=== PATIENT | female | born 1945 | race Caucasian/White ===

== ENCOUNTER 2019-12-10 12:10 | Inpatient (IN) | payer OTHER ==
[~2019-12-10] VITALS: Ht 30.5 cm; Wt 0.2 kg
[2019-12-10] MEDS ORDERED: MIDAZOLAM DRIP 50 mg/50mL 50 ML IV ONE (12:13)
[2019-12-10] MEDS ORDERED: MIDAZOLAM DRIP 50 mg/50mL 50 ML IV SCH (12:19)
[2019-12-10 12:26] VITALS: BP 120/57
[2019-12-10] MEDS ORDERED: SODIUM CHLORIDE 0.9% 1,000 ML IV ONE (12:31)
[2019-12-10] MEDS ORDERED: cefTRIAXone 1GM/50ML D5W 50 ML IV ONE (12:45)
[2019-12-10 13:21] LABS: Eosinophils # (auto) 0.1 10 ^3/uL (0-0.8); Eosinophils % (auto) 0.8 % (0.0-7.0); Neutrophils # (auto) 11.1 10 ^3/uL (1.6-8.6); Red Cell Distribution Width 15.4 % (11.8-14.3)
[2019-12-10 13:23] LABS: Basophils # (auto) 0 10 ^3/uL (0-0.2); Basophils % (auto) 0.3 % (0.0-2.0); Hematocrit 26.2 % (36.0-46.0); Hemoglobin 8.1 g/dL (12.2-16.2); Lymphocytes # (auto) 0.6 10 ^3/uL (0.4-5.4); Lymphocytes % (auto) 4.9 % (10.0-50.0); Mean Corpuscular Volume 83.8 fL (80.0-100.0); Monocytes # (auto) 0.6 10 ^3/uL (0-1.3); Monocytes % (auto) 4.7 % (0.0-12.0); Neutrophils % (auto) 89.3 % (37.0-80.0); Nucleated Red Blood Cells % 0.1 %; Platelet Count (auto) 417 10^3/uL (140-450); Red Blood Cells 3.13 10^6/uL (4.0-5.20); White Blood Cell 12.4 10^3/uL (4.4-10.8)
[2019-12-10 13:38] VITALS: BP 131/46
[2019-12-10 13:45] LABS: Chloride 107 mmol/L (98-107); Potassium 5.4 mmol/L (3.5-5.1); Sodium 137 mmol/L (136-145)
[2019-12-10 13:52] LABS: INR 1.18 (0.9-1.15); Partial Thromboplastin Time 27.8 sec (23.0-31.2)
[2019-12-10 14:24] LABS: Blood Urea Nitrogen 47 mg/dL (7-18); Calcium 8.6 mg/dL (8.5-10.1); Glucose 167 mg/dL (74-106)
[2019-12-10 14:30] LABS: Alanine Aminotransferase 48 U/L (13-56); Albumin 2.9 g/dL (3.4-5.0); BUN/Creatinine Ratio 44.8; Bilirubin, Total 0.3 mg/dL (0.2-1.0); GFR African American 66 mL/min; GFR Non-African American 55 mL/min; Total Protein 6.8 g/dL (6.4-8.2)
[2019-12-10 14:35] VITALS: BP 143/70
[2019-12-10 14:35] LABS: Alkaline Phosphatase 188 U/L (45-117); Aspartate Aminotransferase 100 U/L (15-37)
[2019-12-10 14:59] LABS: Anion Gap 6 (5-15); Carbon Dioxide 24 mmol/L (21-32)
[2019-12-10] MEDS ORDERED: SODIUM CHLORIDE 0.9% 1,000 ML IV SCH (15:16)
[2019-12-10] MEDS ORDERED: MORPHINE SULF INJ 2 MG/ML SYRINGE 1ML IV PRN ×2 (15:30)
[2019-12-10] MEDS ORDERED: ACETAMINOPHEN 325 MG TAB PO PRN (15:30)
[2019-12-10] MEDS ORDERED: DEXTROSE (50%) 50ML SYRG IV PRN (15:30)
[2019-12-10] MEDS ORDERED: NITROGLYCERIN 0.4 MG SL TAB SL PRN (15:30)
[2019-12-10 15:34] LABS: CRP High Sensitivity 3.62 mg/dL (< 0.3)
[2019-12-10 15:43] VITALS: BP 143/70
[2019-12-10] MEDS ORDERED: InsuLIN REG 1unit/0.01ml Soln (100units/ml) SC SCH (16:00)
[2019-12-10] MEDS ORDERED: ACCU-CHEK COMFORT CURVE STRIP VI SCH (16:00)
[2019-12-10 16:14] VITALS: BP 142/75
--- NOTE | 2019-12-10 16:28 | NUR ---
Assessment Patient is a 73-year-old female who is on a Vent. Assessment was completed with patient Kennedy . Per Kennedy prior to admission patient lived home with him and functioned with assistance. Alfredo Kennedy has a bedside commode and a wheel chair for home use. Per Kennedy prior to admission patient was having shortness of breath and was brought to the hospital by the paramedics. Advised patient there is a social service consult for hospice. Kennedy requested [facility] that doctor recommended. Informed Kennedy clinical information will be faxed to [facility]. Informed Kennedy he has a right to participate in all discharge planning. Kennedy verbalized understanding and agreed to discharge plan home. Faxed clinical information to [facility]. Alfredo Harris with [facility] patient has been accepted and has been communicating with patient .
[2019-12-10] MEDS ORDERED: IOHEXOL 350 MG/ML 100ML IJ ONE (17:18)
[2019-12-10 17:48] VITALS: BP 151/71
[2019-12-10] MEDS ORDERED: ENAL20TA8 PO (17:58)
[2019-12-10] MEDS ORDERED: GLIP5TAB12 PO (17:58)
[2019-12-10] MEDS ORDERED: ATOR80TA PO (17:58)
[2019-12-10] MEDS ORDERED: METO25TA5 PO (17:58)
[2019-12-10] MEDS ORDERED: GABA-339 PO (17:58)
[2019-12-10] MEDS ORDERED: CLOP75TA41 PO (17:58)
[2019-12-10] MEDS ORDERED: CARB25TA75 PO (17:58)
[2019-12-10] MEDS ORDERED: HYDR-531 PO (17:58)
[2019-12-10] MEDS ORDERED: METF-371 PO (17:58)
[2019-12-10] MEDS ORDERED: ALPR0.25 PO (17:58)
[2019-12-10] MEDS ORDERED: SERT-375 PO (17:58)
[2019-12-10] MEDS ORDERED: LORazepam 2MG/ML-1ML VIAL IV PRN (18:45)
[2019-12-10] MEDS ORDERED: LORazepam 2MG/ML-1ML VIAL ONE (18:54)
[2019-12-10] MEDS ORDERED: ALBUTEROL SULF 2.5 MG/0.5ML(0.5%) NEB SOLN NEB PRN (19:00)
[2019-12-10] MEDS ORDERED: BUDESONIDE (INHALATION) 0.5 MG/2 ML NEB NEB SCH (19:00)
[2019-12-11] MEDS ORDERED: PANTOPRAZOLE 40 MG/10 ML VIAL INJ IV SCH (10:00)
[2019-12-11] MEDS ORDERED: ENOXAPARIN SOD 40 MG/0.4 ML SYRINGE SC SCH (10:00)
== END 2019-12-10 23:35 | disposition expired | DRG 208 ==
LOC: ER 12:10 → EDBD 12:10 → OVERFLOW 12:11
PROVIDERS: ADMIT Hospitalist; ATTEND Hospitalist
PROC: 5A1935Z Respiratory Ventilation, Less than 24 Consecutive Hours (ICD-10-PCS; principal; 2019-12-10)
PROC: 0BH17EZ Insertion of Endotracheal Airway into Trachea, Via Natural or Artificial Opening (ICD-10-PCS; 2019-12-10)
PROC: 02HV33Z Insertion of Infusion Device into Superior Vena Cava, Percutaneous Approach (ICD-10-PCS; 2019-12-10)
DX: J96.21 Acute and chronic respiratory failure with hypoxia (principal); G93.41 Metabolic encephalopathy; C34.90 Malignant neoplasm of unspecified part of unspecified bronchus or lung; I48.19 Other persistent atrial fibrillation; N17.9 Acute kidney failure, unspecified; E11.22 Type 2 diabetes mellitus with diabetic chronic kidney disease; I46.9 Cardiac arrest, cause unspecified; E86.0 Dehydration; F41.0 Panic disorder [episodic paroxysmal anxiety]; I12.9 Hypertensive chronic kidney disease with stage 1 through stage 4 chronic kidney disease, or unspecified chronic kidney disease; J44.9 Chronic obstructive pulmonary disease, unspecified; N18.3 Chronic kidney disease, stage 3 (moderate); Z51.5 Encounter for palliative care; Z66 Do not resuscitate; Z89.511 Acquired absence of right leg below knee; Z99.81 Dependence on supplemental oxygen; E66.01 Morbid (severe) obesity due to excess calories; Z87.891 Personal history of nicotine dependence; Z88.6 Allergy status to analgesic agent; Z88.5 Allergy status to narcotic agent; Z20.828 Contact with and (suspected) exposure to other viral communicable diseases
CPT/HCPCS: 31500; 36415; 36556; 36600; 71045; 80053; 82728; 82805; 82962; 83036; 83605; 83615; 83880; 84484; 85025; 85379; 85610; 85730; 86141; 87040; 87070; 87077; 87186; 87205; 94002; 99291; G0378; J0696; J1815; J2250